=== PATIENT | male | born 1930 | race Two or more races ===

== ENCOUNTER → 2017-03-09 | Outpatient (REF) | payer MEDICARE, MEDICAID ==
[~2017-03-09] MED LIST: /PRAV20TA PO; /TAMS4CA PO; /WARF3TA PO; ACET50TA PO; AMOX500T PO; ASPI1TAB PO; SYNT100T PO
== END ==
LOC: M SMT 17:38
PROVIDERS: ATTEND Nurse Practitioner Women's Health
DX: Z85.51 Personal history of malignant neoplasm of bladder (principal); Z79.899 Other long term (current) drug therapy
CPT/HCPCS: 81001; 87086; 88108; G0463